=== PATIENT | male | born 1980 | race Caucasian/White ===

== ENCOUNTER 2017-09-28 08:35 | Emergency (ER) | payer OTHER ==
[~2017-09-28] VITALS: Ht 177.8 cm; Wt 83.9 kg
[~2017-09-28 08:35] MED LIST: MEDROLPACK PO; NEURONTIN600 MG PO
== END 2017-09-28 10:03 | disposition home or self-care (01) ==
LOC: ER 08:35
DX: M94.0 Chondrocostal junction syndrome [Tietze] (principal)

== ENCOUNTER 2018-03-25 08:02 | Emergency (ER) | payer OTHER ==
[~2018-03-25] VITALS: Ht 180.3 cm; Wt 93.0 kg
== END 2018-03-25 18:02 | disposition home or self-care (01) ==
LOC: ER 08:02
DX: K57.90 Diverticulosis of intestine, part unspecified, without perforation or abscess without bleeding (principal)